=== PATIENT | female | born 1955 | race Asian ===

== ENCOUNTER 2020-04-05 13:35 | Emergency (ER) | payer MEDICARE, MEDICAID ==
[~2020-04-05] VITALS: Ht 160 cm; Wt 61.4 kg
[2020-04-05] MEDS ORDERED: SERT50TA12 PO (13:44)
[2020-04-05] MEDS ORDERED: ASPI-728 PO (13:44)
[2020-04-05] MEDS ORDERED: PANT-31 PO (13:44)
[2020-04-05] MEDS ORDERED: METO25XL PO (13:44)
[2020-04-05] MEDS ORDERED: LOSA50TA37 PO (13:44)
[2020-04-05] MEDS ORDERED: METF-960 PO (13:44)
[2020-04-05] MEDS ORDERED: ATOR40TA28 PO (13:44)
[2020-04-05] MEDS ORDERED: LIDOCAINE 5% TRANSDERMAL PATCH TD ONE (14:45)
[2020-04-05] MEDS ORDERED: IBUPROFEN 600 MG TABLET PO ONE (15:00)
[2020-04-05 16:20] VITALS: BP 134/82
== END 2020-04-05 16:21 | disposition home or self-care (01) ==
LOC: EMS 13:40
DX: M25.511 Pain in right shoulder (principal); I10 Essential (primary) hypertension; E11.9 Type 2 diabetes mellitus without complications; E78.00 Pure hypercholesterolemia, unspecified; F32.9 Major depressive disorder, single episode, unspecified; Z88.0 Allergy status to penicillin; Z79.84 Long term (current) use of oral hypoglycemic drugs; Z79.899 Other long term (current) drug therapy
CPT/HCPCS: 71046; 71046-TC